=== PATIENT | female | born 1965 | race Caucasian/White ===

== ENCOUNTER 2018-08-26 12:45 | Day surgery (SDC) | payer OTHER ==
[2018-08-26] MEDS ORDERED: CEFAZOLIN 1 GM INJ (18:00)
[2018-08-26] MEDS ORDERED: ONDANSETRON 4 MG INJ (18:00)
[2018-08-26] MEDS ORDERED: LIDOCAINE 100 MG SYRINGE (18:14)
[2018-08-26] MEDS ORDERED: PROPOFOL 20 ML (18:14)
[2018-08-26] MEDS ORDERED: MIDAZOLAM 1 MG/ML 2 ML INJ (18:14)
[2018-08-26] MEDS: ROPIVACAINE 0.5 % 30 ML VIAL (18:40)
[2018-08-26] MEDS ORDERED: ALBUTEROL 0.083% (NEB) 2.5 MG/3 ML AMP HHN (19:30)
[2018-08-26] MEDS ORDERED: FENTAnyl 50 MCG/ML VIAL IV ×3 (19:30)
[2018-08-26] MEDS ORDERED: MIDAZOLAM 1 MG/ML 2 ML INJ IV (19:30)
[2018-08-26] MEDS ORDERED: hydrALAzine 20 MG INJ IV (19:30)
[2018-08-26] MEDS ORDERED: MEPERIDINE 25 MG INJ IV (19:30)
[2018-08-26] MEDS ORDERED: OXYCODONE/ACETAMINOPHEN (5/325) TAB PO ×2 (19:30)
[2018-08-26] MEDS ORDERED: EPHEDrine 25 MG/5 ML SYG IV (19:30)
[2018-08-26] MEDS ORDERED: IPRATROPIUM (NEB) 0.5 MG/2.5 ML AMP HHN (19:30)
[2018-08-26] MEDS ORDERED: morphine 2 MG INJ IV (19:30)
[2018-08-26] MEDS ORDERED: LABETALOL HCL 20MG INJ IV (19:30)
[2018-08-26] MEDS ORDERED: HYDROmorphONE 1 MG/5 ML IV SYRINGE IV ×2 (19:30)
[2018-08-26] MEDS ORDERED: TRIMETHOBENZAMIDE 100 MG/ML VIAL IM (19:30)
[2018-08-26] MEDS ORDERED: DIPHENHYDRAMINE 50 MG INJ IV (19:30)
[2018-08-26] MEDS: ONDANSETRON 4 MG INJ IV (20:13)
[2018-08-26] MEDS: HYDROmorphONE 1 MG/5 ML IV SYRINGE IV (20:14)
[2018-08-26] MEDS: KETOROLAC 30 MG INJ IV (20:14)
== END 2018-08-26 21:38 | disposition home or self-care (01) ==
LOC: SDS 12:45
DX: M23.221 Derangement of posterior horn of medial meniscus due to old tear or injury, right knee (principal); M94.211 Chondromalacia, right shoulder; I10 Essential (primary) hypertension
CPT/HCPCS: 29881; 82306; 84703